=== PATIENT | female | born 1980 | race African-American/Black ===

== ENCOUNTER 2020-03-17 05:40 | Inpatient (IN) | payer OTHER ==
[2020-03-17 06:20] VITALS: BMI 28.8
[2020-03-17 07:04] LABS: BASO % 0.2 % (0-2.0); EOS % 0.9 % (0-4.5); HEMATOCRIT 33.6 % (32.4-45.2); LYMPH % 18.5 % (8-40); MCH 26.4 pg (25.7-33.7); MCHC 32.7 g/dl (32.0-36.0); MEAN CELL VOLUME 80.7 fl (80-96); MEAN PLT VOLUME 12.1 fl (7.5-11.1); MONO % 8.3 % (3.8-10.2); NEUT % 72.1 % (42.8-82.8); PLATELET COUNT 169 K/MM3 (134-434); RBC 4.17 M/mm3 (3.60-5.2); RDW 15.9 % (11.6-15.6); WHITE BLOOD COUNT 8.3 K/mm3 (4.0-10.0)
[2020-03-17 07:06] LABS: RETICULOCYTES 1.84 % (0.5-1.5)
[2020-03-17 07:12] LABS: INR 0.95 (0.83-1.09); PROTHROMBIN TIME (PATIENT) 11.5 SEC (9.7-13.0)
[2020-03-17 07:15] LABS: ACTIVATED PTT 29.1 SECONDS (25.2-36.5)
[2020-03-17 07:32] LABS: POTASSIUM 4.1 mmol/L (3.5-5.1)
[2020-03-17 07:33] LABS: BLOOD UREA NITROGEN 4.3 mg/dL (7-18); CALCIUM 9.2 mg/dL (8.5-10.1)
[2020-03-17 07:36] LABS: URIC ACID 4.3 mg/dL (2.6-7.2)
[2020-03-17 07:37] LABS: CREATININE 0.6 mg/dL (0.55-1.3)
[2020-03-17] MEDS: ELECTROLYTE-148 SOLN 1,000 ML IV SCH ×3 (08:08→13:10)
[2020-03-17] MEDS ORDERED: BUTORPHANOL TARTRATE 1 MG/ML VIAL IVPB ONE (09:56)
[2020-03-17] MEDS ORDERED: PROMETHAZINE HCL 25 MG/1 ML VIAL IVPB ONE (09:56)
[2020-03-17] MEDS ORDERED: BUTORPHANOL TARTRATE 2 MG/ML VIAL ONE (09:57)
[2020-03-17] MEDS: OXYTOCIN 30 UNITS in 0.9% NS 30 UNIT/500 ML INFUS.BAG IVPB SCH (10:05)
[2020-03-17 11:30] LABS: SYPHILIS W/ RPR CONF NON-REACTIVE (NONREACTIVE)
[2020-03-17 11:59] LABS: HIV INTERPRETATION NEGATIVE (NEGATIVE)
[2020-03-17 12:04] LABS: EPI CELLS >36 /uL (0-25.1); HYALINE CASTS 1 /uL (0-3.1); PH,URINE 6.5 (5.0-8.0); URINE APPEARANCE CLEAR; URINE BACTERIA 51 /uL (0-1359); URINE BILIRUBIN NEGATIVE (NEGATIVE); URINE COLOR YELLOW; URINE GLUCOSE (UA) NEGATIVE (NEGATIVE); URINE KETONE NEGATIVE (NEGATIVE); URINE LEUK ESTERASE TRACE (NEGATIVE); URINE NITRITE NEGATIVE (NEGATIVE); URINE PROTEIN 2+ (NEGATIVE); URINE RBC 7 /uL (0-23.9); URINE UROBILINOGEN 0.2 mg/dL (0.2-1.0); URINE WBC 11 /uL (0-25.8)
[2020-03-17 12:06] LABS: YEAST NON SEEN (NEGATIVE)
[2020-03-17] MEDS ORDERED: FENTANYL/BUPIVACAINE/NS/PF - PCEA - 50 ML DISP.SYRIN EP ONE (20:20)
[2020-03-17] MEDS ORDERED: PCA PUMP NR ONE (20:20)
[2020-03-17] MEDS ORDERED: BUPIVACAINE HCL/PF 0.25% (2.5MG/ML) 10 ML VIAL ONE (20:34)
[2020-03-17] MEDS ORDERED: NALOXONE HCL 0.4 MG/ML VIAL IVPUSH PRN (20:53)
[2020-03-17] MEDS ORDERED: FENTANYL/BUPIVACAINE/NS/PF - PCEA - 50 ML DISP.SYRIN EP SCH (21:00)
[2020-03-18] MEDS ORDERED: FENTANYL/BUPIVACAINE/NS/PF - PCEA - 50 ML DISP.SYRIN EP ONE ×2 (00:58→05:05)
[2020-03-18] MEDS ORDERED: LIDOCAINE HCL 1% PRESERVATIVE FREE - 30ML VIAL ONE (05:35)
[2020-03-18] MEDS ORDERED: OXYTOCIN 20 UNITS in 0.9% NS 20 UNIT/1,000 ML INFUS.BAG IV ONE (05:35)
[2020-03-18] MEDS ORDERED: morphine SULFATE/PF 0.5 MG/ML (2cc Syringe - QUVA) ONE ×2 (08:00)
[2020-03-18 08:48] LABS: CORD PCO2 71.8 mmHg (30-78)
[2020-03-18 08:53] LABS: CORD HCO3 16.3 mmHg (20-29); CORD PCO2 67.1 mmHg (30-78); CORD pH 7.004 (7.14-7.44)
[2020-03-18 08:55] LABS: CORD pH 6.965 (7.14-7.44)
[2020-03-18] MEDS: OXYTOCIN 20 UNITS in 0.9% NS 20 UNIT/1,000 ML INFUS.BAG IV SCH (09:00)
[2020-03-18] MEDS ORDERED: BENZOCAINE 20% 57 GM BOTTLE TP PRN (09:05)
[2020-03-18] MEDS ORDERED: IBUPROFEN 800 MG/8 ML IJ IVPB PRN (09:05)
[2020-03-18] MEDS ORDERED: WITCH HAZEL 50% (TUCKS) 40 PAD/JAR PAD TP PRN (09:05)
[2020-03-18] MEDS ORDERED: METHYLERGONOVINE MALEATE 0.2 MG/1 ML AMP IM PRN (09:05)
[2020-03-18] MEDS ORDERED: BENZOCAINE 28 GM HEMORRHOIDAL OINTMENT TP PRN (09:05)
[2020-03-18] MEDS: FERROUS SO4 325 MG TABLET (FP) PO SCH ×2 (10:00→22:00)
[2020-03-18] MEDS: OXYTOCIN 30 UNITS in 0.9% NS 30 UNIT/500 ML INFUS.BAG IVPB SCH (10:01)
[2020-03-18] MEDS: PRENATAL VITAMINS W/ FOLIC ACID TABLET (FP) PO SCH (10:01)
[2020-03-18] MEDS: ELECTROLYTE-148 SOLN 1,000 ML IV SCH (10:20)
[2020-03-18] MEDS ORDERED: CITRIC ACID/SODIUM CITRATE 30 ML UNIT-DOSE CUP PO ONE (10:40)
[2020-03-18] MEDS: oxyCODONE HCL 5 MG TABLET PO PRN (22:28)
[2020-03-18] MEDS: SIMETHICONE 80 MG TAB.CHEW (FP) PO PRN (22:28)
[2020-03-18] MEDS: IBUPROFEN 600 MG TABLET (FP) PO PRN (22:28)
[2020-03-19] MEDS: oxyCODONE HCL 5 MG TABLET PO PRN ×4 (06:24→22:52)
[2020-03-19] MEDS: IBUPROFEN 600 MG TABLET (FP) PO PRN ×4 (06:25→22:55)
[2020-03-19] MEDS: SIMETHICONE 80 MG TAB.CHEW (FP) PO PRN ×4 (06:25→21:03)
[2020-03-19 08:16] LABS: BASO % 0.4 % (0-2.0); EOS % 0.7 % (0-4.5); HEMATOCRIT 30.3 % (32.4-45.2); HEMOGLOBIN 9.8 GM/dL (10.7-15.3); LYMPH % 11.5 % (8-40); MCH 26.3 pg (25.7-33.7); MCHC 32.4 g/dl (32.0-36.0); MEAN CELL VOLUME 81.4 fl (80-96); MEAN PLT VOLUME 11.5 fl (7.5-11.1); MONO % 7.2 % (3.8-10.2); NEUT % 80.2 % (42.8-82.8); PLATELET COUNT 150 K/MM3 (134-434); RBC 3.72 M/mm3 (3.60-5.2); RDW 15.6 % (11.6-15.6); WHITE BLOOD COUNT 11.7 K/mm3 (4.0-10.0)
[2020-03-19] MEDS ORDERED: BISACODYL 10 MG SUPP.RECT RC PRN (09:05)
[2020-03-19] MEDS: PRENATAL VITAMINS W/ FOLIC ACID TABLET (FP) PO SCH (09:07)
[2020-03-19] MEDS: FERROUS SO4 325 MG TABLET (FP) PO SCH ×2 (09:07→21:04)
[2020-03-20] MEDS: IBUPROFEN 600 MG TABLET (FP) PO PRN ×5 (04:18→21:26)
[2020-03-20] MEDS: SIMETHICONE 80 MG TAB.CHEW (FP) PO PRN ×4 (04:18→21:25)
[2020-03-20] MEDS: oxyCODONE HCL 5 MG TABLET PO PRN ×5 (04:18→21:25)
[2020-03-20] MEDS: FERROUS SO4 325 MG TABLET (FP) PO SCH ×2 (10:28→21:25)
[2020-03-20] MEDS: PRENATAL VITAMINS W/ FOLIC ACID TABLET (FP) PO SCH (10:28)
[2020-03-20 22:18] VITALS: PULSE 91
[2020-03-21] MEDS: OXYTOCIN 20 UNITS in 0.9% NS 20 UNIT/1,000 ML INFUS.BAG IV SCH ×3 (01:10→10:50)
[2020-03-21] MEDS: oxyCODONE HCL 5 MG TABLET PO PRN ×2 (01:15→08:45)
[2020-03-21] MEDS: SIMETHICONE 80 MG TAB.CHEW (FP) PO PRN ×2 (01:15→08:45)
[2020-03-21] MEDS: IBUPROFEN 600 MG TABLET (FP) PO PRN ×2 (01:16→08:44)
[2020-03-21 08:41] LABS: BASO % 0.5 % (0-2.0); EOS % 2.3 % (0-4.5); HEMATOCRIT 29.8 % (32.4-45.2); HEMOGLOBIN 9.5 GM/dL (10.7-15.3); LYMPH % 16.2 % (8-40); MCH 25.7 pg (25.7-33.7); MCHC 32.1 g/dl (32.0-36.0); MEAN CELL VOLUME 80.1 fl (80-96); MEAN PLT VOLUME 10.7 fl (7.5-11.1); PLATELET COUNT 188 K/MM3 (134-434); RBC 3.72 M/mm3 (3.60-5.2); WHITE BLOOD COUNT 7.3 K/mm3 (4.0-10.0)
[2020-03-21] MEDS: PRENATAL VITAMINS W/ FOLIC ACID TABLET (FP) PO SCH (10:27)
[2020-03-21] MEDS: FERROUS SO4 325 MG TABLET (FP) PO SCH (10:27)
[2020-03-21 12:07] VITALS: BP 123/81; TEMP 98.3
== END 2020-03-21 13:40 | disposition home or self-care (01) | DRG 788 ==
LOC: JLDR 05:40 → J3W 03-18 11:10
PROVIDERS: ADMIT Obstetrics & Gynecology; ATTEND Obstetrics & Gynecology
PROC: 10D00Z1 Extraction of Products of Conception, Low, Open Approach (ICD-10-PCS; principal; 2020-03-18)
DX: O76 Abnormality in fetal heart rate and rhythm complicating labor and delivery (principal); O09.523 Supervision of elderly multigravida, third trimester; Z3A.39 39 weeks gestation of pregnancy; Z37.0 Single live birth
CPT/HCPCS: 36415; 36600; 80048; 81003; 82803; 82977; 83010; 84450; 84460; 84550; 85025; 85032; 85045; 85610; 85730; 86780; 86850; 86900; 86901; 87389; 88307-TC